=== PATIENT | female | born 1965 | race Caucasian/White ===

== ENCOUNTER 2021-06-02 20:22 | Emergency (ER) | payer BC ==
[2021-06-02 20:29] VITALS: BP 152/82; PULSE 77; RESP 20; TEMP 98.1
[2021-06-02] MEDS ORDERED: PROPARACAINE 0.5% OPHTH DROPS 15 ML BTL RIGHT EYE STA (22:46)
[2021-06-02] MEDS ORDERED: FLUORESCEIN STRIPS 1 MG STRIP RIGHT EYE ONE (22:46)
[2021-06-02] MEDS ORDERED: TOBRAMYCIN 0.3% OPHTH DROPS 5 ML BTL RIGHT EYE STA (23:35)
--- NOTE | 2021-06-02 23:37 | ED ---
Eye Problem HPI - General Chief complaint: Eye Problems Stated complaint: R eye irritation Time Seen by Provider: 06/02/21 22:44 Source: patient Mode of arrival: ambulatory Limitations: no limitations - History of Present Illness Initial comments: 55 year-old female patient presents to the emergency department for evaluation of right eye redness and irritation. States she woke this morning with clear tearing. Irritation worsened throughout day. She denies significant pain. Denies blurred or double vision. Denies any fever or chills. Has not used any drops or medication. Does not wear contacts. Denies any eye injury. Does not think she has anything in the eye. Denies any other symptoms or concerns. - Related Data Allergies Allergy/AdvReac Type Severity Reaction Status Date / Time No Known Allergies Allergy Verified 06/02/21 20:29 Review of Systems ROS Statement: Those systems with pertinent positive or pertinent negative responses have been documented in the HPI. ROS Other: All systems not noted in ROS Statement are negative. Past Medical History Past Medical History: Asthma, Hyperlipidemia History of Any Multi-Drug Resistant Organisms: None Reported Past Surgical History: Section Past Psychological History: No Psychological Hx Reported Smoking Status: Current every day smoker Past Alcohol Use History: Occasional Past Drug Use History: Marijuana General Exam Limitations: no limitations General appearance: alert, in no apparent distress, other (Physical well- developed, well-nourished adult female patient in no acute distress. Vital signs upon presentation are temperature 98.1F, pulse 77, respirations 20, blood pressure 152/82, pulse ox 96% on room air.) Eye exam: Present: PERRL, EOMI, conjunctival injection (Right eye), other (Clear tearing from the right eye. Fluorescein stain with Wood's lamp examination was performed and showed no evidence for injury. There is no sign of foreign body. Lids were everted. There is no lid swelling or redness. Limbus is clear.). Absent: scleral icterus, periorbital swelling ENT exam: Present: normal exam, normal oropharynx, mucous membranes moist Respiratory exam: Present: normal lung sounds bilaterally. Absent: respiratory distress, wheezes, rales, rhonchi, stridor Cardiovascular Exam: Present: regular rate, normal rhythm, normal heart sounds. Absent: systolic murmur, diastolic murmur, rubs, gallop, clicks Neurological exam: Present: alert, oriented X3, CN II-XII intact Psychiatric exam: Present: normal affect, normal mood Skin exam: Present: warm, dry, intact, normal color. Absent: rash Course Vital Signs 06/02/21 20:26 Temperature 98.1 F Pulse Rate 77 Respiratory 20 Rate Blood Pressure 152/82 O2 Sat by Pulse 96 Oximetry Medical Decision Making - Medical Decision Making 55 year-old female patient presents to the emergency department for evaluation of right eye redness and drainage. Physical examination reveals right sided conjunctival injection and clear tearing. Fluorescein stain with Wood's lamp examination was performed and showed no evidence for injury. Lids were everted there is no evidence for foreign body. Limbus is clear. Patient denies any significant discomfort. Symptoms consistent with conjunctivitis. Started tobramycin drops. She is given ophthalmology follow-up if symptoms are not improved. Instructed to follow-up with her primary care physician for recheck in 1-2 days. Return parameters were discussed in detail. She verbalizes understanding and agrees with this plan. Case discussed with my attending Dr. Can. Disposition Clinical Impression: Conjunctivitis, right eye Disposition: HOME SELF-CARE Condition: Good Instructions (If sedation given, give patient instructions): Conjunctivitis (ED) Additional Instructions: Do one drop to the right eye 4 times daily while awake. Follow-up with ophthalmology symptoms aren't improved. Follow-up through primary care physician for recheck in 1-2 days. Return for any new, worsening, or concerning symptoms. Is patient prescribed a controlled substance at d/c from ED?: No Referrals: Cat Ingram DO [Primary Care Provider] - 1-2 days Clemente Winter MD [STAFF PHYSICIAN] - 1-2 days Time of Disposition: 23:37
== END 2021-06-03 00:07 | disposition home or self-care (01) ==
LOC: EC 20:22
DX: H10.9 Unspecified conjunctivitis (principal); E78.5 Hyperlipidemia, unspecified; F17.200 Nicotine dependence, unspecified, uncomplicated; F12.90 Cannabis use, unspecified, uncomplicated
CPT/HCPCS: 99283

== ENCOUNTER → 2023-06-04 | Outpatient (CLI) | payer BC ==
--- NOTE | 2023-06-04 08:42 | CTL ---
EXAMINATION TYPE: CT Low Dose Lung DATE OF EXAM ORDERED: 06/04/2023 HISTORY: Z87.891. Current smoker, 46 pack year history. Lung cancer screening CT DLP: 84.[address] CTDI: 2.4 mGy Automated exposure control for dose reduction was used. SCREENING VISIT: First screening visit COMPARISON: CT chest lung 08/20/2016 TECHNIQUE: Low dose computed tomography scan was performed through the chest at 1 mm thick sections a nd reconstructed images in multiple planes at 1 mm and [address] DIAGNOSTIC QUALITY: Satisfactory FINDINGS: LUNG NODULES: No clinically significant pulmonary nodules. LUNGS: COPD: Severity: Mild Fibrosis: Severity: None Lymph nodes: None Other findings: None RIGHT PLEURAL SPACE: Effusion: None Calcification: None Thickening: None Pneumothorax: None LEFT PLEURAL SPACE: Effusion: None Calcification: None Thickening: None Pneumothorax: None HEART: Heart Size: Normal Coronary Calcification: Moderate Pericardial Effusion: None OTHER FINDINGS: Upper abdomen: None Bony thorax: No acute osseous abnormality. Multilevel anterior osteophytosis. Supraclavicular region: None Other: None IMPRESSION: No clinically significant pulmonary nodules. CT LUNG RAD AND CT CHEST RECOMMENDATION: Lung-Rad 1 Negative: Continue annual screening with LDCT in 12 months. S Modifier (other clinically significant findings): None
== END | disposition home or self-care (01) ==
LOC: RADCTMAIN 08:06
PROVIDERS: ATTEND Family Medicine
DX: Z12.2 Encounter for screening for malignant neoplasm of respiratory organs (principal); F17.210 Nicotine dependence, cigarettes, uncomplicated
CPT/HCPCS: 71271

== ENCOUNTER 2025-02-11 12:46 | Day surgery (SDC) | payer BC ==
[2025-02-11] MEDS: LACTATED RINGERS 1,000 ML IV SCH (13:43)
[2025-02-11 13:45] VITALS: TEMP 98.3
[2025-02-11] MEDS: IV FLUID CONTINUATION 1,000 ML IV ONE (13:45)
[2025-02-11] MEDS ORDERED: PROPOFOL 10 MG/ML 20 ML VIAL IV ONE (14:00)
--- NOTE | 2025-02-11 14:12 | P.GSHP ---
History of Present Illness H&P Date: 02/11/25 Chief Complaint: Screening colonoscopy This a 59-year-old female presents today for screening colonoscopy. Patient denies any significant GI complaints. Past Medical History Past Medical History: Asthma, Hyperlipidemia, Hypertension, Sleep Apnea/CPAP/BIPAP Additional Past Medical History / Comment(s): no CPAP History of Any Multi-Drug Resistant Organisms: None Reported Past Surgical History: Section Additional Past Surgical History / Comment(s): x2, D&C Past Anesthesia/Blood Transfusion Reactions: No Reported Reaction Smoking Status: Current every day smoker Medications and Allergies Home Medications Medication Instructions Recorded Confirmed Type Albuterol Nebulized [Ventolin 2.5 mg INHALATION Q6H PRN 02/06/25 02/11/25 History Nebulized] Albuterol Sulfate [Albuterol 2 puff PO Q6H PRN 02/06/25 02/11/25 History Sulfate Hfa] Montelukast [Singulair] 10 mg PO DAILY 02/06/25 02/11/25 History lisinopriL [Zestril] 20 mg PO DAILY 02/06/25 02/11/25 History Allergies Allergy/AdvReac Type Severity Reaction Status Date / Time Penicillins Allergy Rash/Hives Verified 02/11/25 13:17 Surgical - Exam Vital Signs Temp Pulse Resp BP Pulse Ox 98.3 F 65 18 176/79 96 02/11/25 13:36 02/11/25 13:36 02/11/25 13:36 02/11/25 13:36 02/11/25 13:36 - General well developed, well nourished, no distress - Eyes PERRL - ENT normal pinna - Neck no masses - Respiratory normal expansion - Cardiovascular Rhythm: regular - Abdomen Abdomen: soft, non tender Assessment and Plan Assessment: Will perform screening colonoscopy
--- NOTE | 2025-02-11 14:27 | P.OP ---
Date of Procedure: 02/11/25 Preoperative Diagnosis: Screening colonoscopy Postoperative Diagnosis: Colon polyps Procedure(s) Performed: Colonoscopy Anesthesia: MAC Surgeon: Avila Myrick Pathology: other Condition: stable Disposition: PACU Description of Procedure: The patient was placed on the endoscopy table in the lateral position. She received IV sedation. Digital rectal exam was performed. This revealed no abnormalities. The flexible colonoscope was then placed patient Anaspaz throughout the entire colon. The ileocecal valve was visualized. T in the cecum there was evidence of a small sessile polyp. This removed with the cold forcep. The scope was brought back to the M[place] of the ascending colon appeared normal. In the transverse colon there is no other polyp seen. This removed with a cold forcep. The scope was then brought back down through the descending and sigmoid colon there is a few scattered diverticuli seen. The scope withdrew back the rectum this appeared normal. Scope withdrawn for the patient.
[2025-02-11 14:30] VITALS: RESP 16
[2025-02-11 14:44] VITALS: BP 142/85; PULSE 64
== END 2025-02-11 15:10 | disposition home or self-care (01) ==
LOC: ORWHC2ENDO 12:46
PROVIDERS: ATTEND Surgery
DX: Z12.11 Encounter for screening for malignant neoplasm of colon (principal); D12.0 Benign neoplasm of cecum; D12.3 Benign neoplasm of transverse colon; G47.30 Sleep apnea, unspecified; E78.5 Hyperlipidemia, unspecified; I10 Essential (primary) hypertension; J45.909 Unspecified asthma, uncomplicated; F17.200 Nicotine dependence, unspecified, uncomplicated; Z88.0 Allergy status to penicillin
CPT/HCPCS: 88305; 45380; J2704